=== PATIENT | male | born 1955 | race Caucasian/White ===

== ENCOUNTER 2019-12-11 11:00 | Outpatient (RCR) | payer BC, SELFPAY ==
--- NOTE | 2019-11-07 12:16 | PTOPEVAL ---
PHYSICAL THERAPY EVALUATION and PLAN OF CARE Thank you for referring Bishop Forbes to [facility]. He will be seen in PT 2x/wk x 4 wks. Please review, sign, date and return this plan of care LEO. I agree with and certify that the following plan of care is medically necessary. Referring Physician Date Admitting Provider: Attending Provider: George Sykes, MD Referring Provider: *PT Outpatient Evaluation Start: 11/07/19 10:28 Freq: Status: Active Protocol: Document 11/07/19 10:28 CHERYL (Rec: 11/07/19 12:15 CHERYL [id number]) Therapy Assessment Status Assessment Status Assessment Status Evaluation Outpatient Past Medical History Past Medical History Source of Past Medical History Patient Neurological History Hx Neurological Disorders No Significant History Cardiovascular History Hx Cardiac Disorders No Significant History Respiratory History Hx Respiratory Disorders No Significant History Gastrointestinal History Hx Gastrointestinal Disorders No Significant History Genitourinary History Hx Genitourinary Disorders No Significant History Musculoskeletal History Hx Back Pain Yes: ongoing Hx Other Musculoskeletal Disorders Yes: bilat knee pain - R>L Endocrine History Hx Endocrine Disorders No Significant History Evaluation Information Problem Diagnosis bilat knee pain Onset R - 3 yrs ago L - 2 yrs ago Additional Evaluation Detail 2 years ago - knee gave out - hit knee on floor Subjective Information R knee - sharp pain when Query Text:As Reported By Patient/ standing, if makes a turn - Family will feel a twinge on the knee . Sitting to standing - has to be careful - some discomfort. L knee - doesn't hurt as much as the R - with increase in knee flexion - will feel something - then when straightens knee will feel popping sound. Sleeps fine - mornings - needs to move knees back/forth to loosen knees up - once gets them loosen up can go and do things just fine. Did receive cortizone injection 11/05/[address] 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
--- NOTE | 2019-12-11 14:14 | PTOPEVAL ---
PHYSICAL THERAPY DISCHARGE SUMMARY Thank you for referring Bishop Forbes to [facility]. He was seen x 8 visits. He is independent with his HEP. Strength and flexibility goals were met. He is encouraged to use ice on a regular basis after increased activity levels. He is at end point with PT at this time. I agree with Bishop's discharge from PT. Referring Physician Date Admitting Provider: Attending Provider: George Sykes, MD Referring Provider: *PT Outpatient Evaluation Start: 11/07/19 10:28 Freq: Status: Active Protocol: Document 12/11/19 11:05 CHERYL (Rec: 12/11/19 14:14 CHERYL [email or web address]) Therapy Assessment Status Assessment Status Assessment Status Discharge Evaluation Information Problem Subjective Information Bishop reports increase in Query Text:As Reported By Patient/ knee pain from helping to Family clean his mom's gutters with his nephew. He just did lots of walking while the nephew climbed the ladder. He did take ibuprofen afterwards, but did not use ice. Still unable to schedule appointment with Ortho MD. Pain Assessment Timing of Pain Assessment Timing of Pain Assessment Assessment Pain Scale Pain Scale Used Numeric (1 - 10) Self Report Pain Assessment Bilateral Knee(s) Reported Pain Level 7 Pain Frequency Chronic Lowest Pain Intensity 4 Greatest Pain Intensity 9 Pain Score Pain Score 7: Self Report Lower Extremity Range of Motion Knee Range of Motion Bilateral Knee Flexion Range of Motion - Active 120 Knee Extension Range of Motion - Active 0 Query Text: Knee Range of Motion Limitations Soft Tissue Restriction Lower Extremity Muscle Strength Testing Hip Strength Bilateral Hip Flexion Strength 5 Normal Hip Extension Strength 5 Normal Hip Abduction Strength 4+ Good + Hip Medial Rotation Strength 5 Normal Hip Lateral Rotation Strength 5 Normal Knee Strength Bilateral Knee Flexion Strength 5 Normal Knee Strength Comments L 5/5 R 4+/5 - due to pain with testing Muscle Length Testing Muscle Length Testing Roby's Test Hip Muscle Length (R) Mild Tightness Left Hamstring Length -20 Query Text:(90 - 90 Position) Right Hamstring Length -16 Query Text:(90 - 90 Position) Palpation Assessment Palpation Palpation increased tenderness R medial patella - joint line is non tender. Proper P-F tracking
== END 2019-12-12 11:10 | disposition home or self-care (01) ==
LOC: ANHPT 11:00
PROVIDERS: PCP Internal Medicine; Visit Provider Internal Medicine
DX: M25.562 Pain in left knee (principal); M25.561 Pain in right knee
CPT/HCPCS: 97110; 97161

== ENCOUNTER 2020-04-21 14:00 | Outpatient (RCR) | payer BC, SELFPAY ==
--- NOTE | 2020-04-07 10:15 | PTOPEVAL ---
Thank you for referring Bishop Forbes to [facility].? The patient is scheduled to be seen for therapy? 2 x/week for 4 weeks. Please review, sign, date and return this plan of care LEO. I agree with and certify that the following plan of care is medically necessary. Referring Physician Date Admitting Provider: Attending Provider: JUAN Gustafson Referring Provider: NI Outpatient Evaluation Start: 04/07/20 08:51 Freq: Status: Active Protocol: Document 04/07/20 08:51 TLM (Rec: 04/07/20 09:50 TLM [id number]) Therapy Assessment Status Assessment Status Assessment Status Evaluation Outpatient Past Medical History Past Medical History Source of Past Medical History Recalled from Previous Visit, Confirmed with Patient/Family Neurological History Hx Neurological Disorders No Significant History Cardiovascular History Hx Cardiac Disorders No Significant History Respiratory History Hx Respiratory Disorders No Significant History Gastrointestinal History Hx Gastrointestinal Disorders No Significant History Genitourinary History Hx Genitourinary Disorders No Significant History Musculoskeletal History Hx Back Pain Yes: ongoing Hx Other Musculoskeletal Disorders Yes: bilat knee pain - R>L Endocrine History Hx Endocrine Disorders No Significant History Evaluation Information Problem Diagnosis B knee chondromalacia Additional Evaluation Detail Works at [employer]. Keras frequently. 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 Hasn't been to work since cortisone injections in December. Doesn't plan to return until Apr. Difficulty with work duties, putting on shoes/socks, walking long distances, squatting, navigating stairs, standing >1 hour, getting in/ out of car. Subjective Information Knee pain R>L. Had a staph Query Text:As Reported By Patient/ infection in R knee 2000 and Family has had progressive knee pain ever since. Had B corisone injections on january 21 in medial and lateral compartments. Is scheduled to have another round of B cortisone injections on Apr 22.
--- NOTE | 2020-04-23 08:43 | PCPTNOTE ---
Patient called & cancelled scheduled appointment this date and his remaining visits due to he has returned to work. Will DC his therapy chart at this time.
--- NOTE | 2020-04-23 08:45 | PCPTNOTE ---
Admitting Provider: Attending Provider: JUAN Gustafson Patient:Bishop Forbes Date of :1955 Discharge Note Patient has returned to work and will not be returning to therapy for any further treatments since 04/21/2020, therefore he will be discharged at this time. Patient?s initial visit was on 04/07/2020 09:00 and he had a total of 6 therapy visits. The goals have been partially met. Thank you for referring this patient to [facility]. Please review, sign, date and return this discharge summary LEO. I have been updated about the patient's current status and I agree with discharge from the above service at this time. Referring Physician Date
== END 2020-04-23 12:32 | disposition home or self-care (01) ==
LOC: ANHPT 14:00
PROVIDERS: PCP Internal Medicine; Visit Provider Nurse Practitioner Family
DX: M94.261 Chondromalacia, right knee (principal); M94.262 Chondromalacia, left knee; M17.0 Bilateral primary osteoarthritis of knee
CPT/HCPCS: 97110; 97112; 97161